=== PATIENT | female | born 1990 | race Caucasian/White ===

== ENCOUNTER 2021-07-27 13:55 | Emergency (ER) | payer SELFPAY ==
--- OUTSIDE RECORDS SUMMARY | 2021-07-27 14:00 | XMS REPORT | Continuity of Care Document ---
:1990 Author Organization [facility] t Address [address] [place] [address] Care Team Providers Name Role Phone Shin Quintana Primary Care Physician Suzette CANELA Attending Clinician Unavailable Suzette Dumont Attending Clinician Roxann WADE C Attending Clinician Shin SAMUEL Attending Clinician Unavailable Visit, Nurse Attending Clinician Unavailable Doctor Unassigned, Name Attending Clinician Unavailable Payers Payer Name Policy Type Policy Number Effective Date Expiration Date S ource Problems Condition Condition Condition Status Onset Resolution Last Treating Co mments Source Name Details Category Date Date Treatment Clinician Date Nexplanon Nexplanon Disease Active Uni vers removal removal 4-19 ity of 00:00: [place] 00 [facility] Contracept Contracept Disease Active U nivers ion ion 3-12 [place] [facility] Lack of Lack of Disease Active Univers access to access to 1-17 [place] [facility] High-risk High-risk Disease Active Uni vers 6-23 ity of supervisio [place]visio [place] 00 Medical unspecifie unspecifie Br anch d d trimester trimester BV BV Disease Active Univers (bacterial (bacterial 2-24 it y of vaginosis) [place]in[place] [facility] Chlamydia Chlamydia Disease Active Uni vers trachomati trachomati 09-04 it y of s s 00:00: [place] infection infection 00 Medi cindi of lower of lower Branch genitourin genitourin jordan sites jordan sites Tobacco Tobacco Disease Active Univers use use 21 ity of disorder disorder 00:00: [place] 00 Medical Branch Need for Need for Disease Active Unive rs prophylact prophylact -21 it y of ic ic 00:00: [place] vaccinatio vaccinatio 00 Me dical n with n with Branch combined combined diphtheria diphtheria -tetanus-p -tetanus-p ertussis ertussis (DTP) (DTP) vaccine vaccine Allergies, Adverse Reactions, Alerts Allergy Allergy Status Severity Reaction(s) Onset Inactive Treating Comm ents Source Name Type Date Date Clinician LATEX DRUG Active Anaphylaxis Unive rs INGREDI - ity of 00:00: [place] 00 Medical Branch Latex Propensi Active Anaphylaxis Uni vers ty to 01-30 ity of adverse 00:00: [place] reaction 00 Medical s Branch LEVOFLOX DRUG Active ITCHING Univers ACIN INGREDI - ity of 00:00: [place] 00 Medical Branch Levoflox Propensi Active Itching Unive rs acin ty to - ity of adverse 00:00: [place] reaction 00 Medical s Branch Social History Social Habit Start Date Stop Date Quantity Comments Source History of tobacco Cigarette Smoker University of use [facility] Exposure to Not sure [employer] of SARS-CoV-2 (event) [facility] Cigarettes smoked 2021-04-16 2021-04-16 Univers ity of current (pack per 00:00:00 00:00:00 ) - Reported Branch Cigarette 2021-04-16 2021-04-16 University of pack-years 00:00:00 00:00:00 [facility] Tobacco use and 2021-04-16 2021-04-16 Never used Universit y of exposure 00:00:00 00:00:00 [facility] Alcohol intake 2021-04-16 2021-04-16 Current drinker Unive rsity of 00:00:00 00:00:00 of alcohol [facility] (finding) [place] Tobacco Comment 2018-11-25 2018-11-25 only smoking Univers ity of 00:00:00 00:00:00 about 5-6 cigs a [facility] dicfl day [place] Sex [birth year] At [birth year] Universit y of 00:00:00 00:00:00 [facility] Smoking Status Start Date Stop Date Source Current every day smoker 2021-04-16 00:00:00 Uni versity [facility] Medications Ordered Filled Start Stop Current Ordering Indication Dosage Frequency Signature Comments Components Source Medication Medication Date Date Medication? Clinician (SIG) Name Name levonorgest Yes [id number] 1{tbl} Take 1 Univers rel-ethinyl 9-07 tablet by ity of estradiol 00:00: mouth [place] (SRONYX) 00 daily. Medical 0.1-20 Branch mg-mcg per tablet levonorgest Yes [id number] 1{tbl} Take 1 Univers rel-ethinyl 9-07 tablet by ity of estradiol 00:00: mouth [place] (SRONYX) 00 daily. Medical 0.1-20 Branch mg-mcg per tablet levonorgest Yes [id number] 1{tbl} Take 1 Univers rel-ethinyl 9-07 tablet by ity of estradiol 00:00: mouth [place] (SRONYX) 00 daily. Medical 0.1-20 Branch mg-mcg per tablet levonorgest Yes [id number] 1{tbl} Take 1 Univers rel-ethinyl 8-13 tablet by ity of estradiol 00:00: mouth [place] (SRONYX) 00 daily. Medical 0.1-20 Branch mg-mcg per tablet levonorgest 2020- No [id number] 1{tbl} Take 1 Univers rel-ethinyl 8-13 -07 tablet by it y of estradiol 00:00: 00:00 mouth [place] (SRONYX) 00 :00 daily. Medical 0.1-20 Branch mg-mcg per tablet levonorgest 2020- No [id number] 1{tbl} Take 1 Univers rel-ethinyl 8-13 09-07 tablet by it y of estradiol 00:00: 00:00 mouth [place] (SRONYX) 00 :00 daily. Medical 0.1-20 Branch mg-mcg per tablet levonorgest 202- No [id number] 1{tbl} Take 1 Univers rel-ethinyl 8-13 09-07 tablet by it y of estradiol 00:00: 00:00 mouth [place] (SRONYX) 00 :00 daily. Medical 0.1-20 Branch mg-mcg per tablet metroNIDAZO Yes [id number] 500mg Take 1 Univers LE 500 mg 7-05 tablet by ity o f tablet 00:00: mouth 2 (two) Medical times Branch daily. metroNIDAZO Yes [id number] 500mg Take 1 Univers LE 500 mg 7-05 tablet by ity o f tablet 00:00: mouth 2 (two) Medical times Branch daily. metroNIDAZO Yes [id number] 500mg Take 1 Univers LE 500 mg 7-05 tablet by ity o f tablet 00:00: mouth 2 (two) Medical times Branch daily. metroNIDAZO Yes [id number] 500mg Take 1 Univers LE 500 mg 7-05 tablet by ity o f tablet 00:00: mouth 2 (two) Medical times Branch daily. metroNIDAZO Yes [id number] 500mg Take 1 Univers LE 500 mg 7-05 tablet by ity o f tablet 00:00: mouth 2 (two) Medical times Branch daily. metroNIDAZO Yes [id number] 500mg Take 1 Univers LE 500 mg 7-05 tablet by ity o f tablet 00:00: mouth 2 (two) Medical times Branch daily. metroNIDAZO Yes [id number] 500mg Take 1 Univers LE 500 mg 7-05 tablet by ity o f tablet 00:00: mouth 2 (two) Medical times Branch daily. metroNIDAZO Yes [id number] 500mg Take 1 Univers LE 500 mg 7-05 tablet by ity o f tablet 00:00: mouth 2 (two) Medical times Branch daily. fluconazole 2020- No [id number] 150mg Take 1 Univers (DIFLUCAN) 7-05 07-06 tablet by ity of 150 mg 00:00: 04:59 [place] tablet [place] :[place] now for 1 Medical dose. Branch fluconazole 2020- No [id number] 150mg Take 1 Univers (DIFLUCAN) 7-05 07-06 tablet by ity of 150 mg 00:00: 04:59 [place] tablet 00 :00 now for 1 Medical dose. Branch levonorgest 2020-0 Yes [id number] 1{tbl} Take 1 Univers rel-ethinyl 5-20 tablet by ity of estradiol 00:00: mouth [place] (SRONYX) 00 daily. Medical 0.1-20 Branch mg-mcg per tablet levonorgest 2020-0 Yes [id number] 1{tbl} Take 1 Univers rel-ethinyl 5-20 tablet by ity of estradiol 00:00: mouth [place] (SRONYX) 00 daily. Medical 0.1-20 Branch mg-mcg per tablet levonorgest 2020-0 Yes [id number] 1{tbl} Take 1 Univers rel-ethinyl 5-20 tablet by ity of estradiol 00:00: mouth [place] (SRONYX) 00 daily. Medical 0.1-20 Branch mg-mcg per tablet levonorgest 2020-0 Yes [id number] 1{tbl} Take 1 Univers rel-ethinyl 5-20 tablet by ity of estradiol 00:00: mouth [place] (SRONYX) 00 daily. Medical 0.1-20 Branch mg-mcg per tablet levonorgest 2020-0 Yes [id number] 1{tbl} Take 1 Univers rel-ethinyl 5-20 tablet by ity of estradiol 00:00: mouth [place] (SRONYX) 00 daily. Medical 0.1-20 Branch mg-mcg per tablet levonorgest 2020-0 Yes [id number] 1{tbl} Take 1 Univers rel-ethinyl 5-20 tablet by ity of estradiol 00:00: mouth [place] (SRONYX) 00 daily. Medical 0.1-20 Branch mg-mcg per tablet levonorgest 2020-0 Yes [id number] 1{tbl} Take 1 Univers rel-ethinyl 5-20 tablet by ity of estradiol 00:00: mouth [place] (SRONYX) 00 daily. Medical 0.1-20 Branch mg-mcg per tablet levonorgest 2020-0 Yes [id number] 1{tbl} Take 1 Univers rel-ethinyl 5-20 tablet by ity of estradiol 00:00: mouth [place] (SRONYX) 00 daily. Medical 0.1-20 Branch mg-mcg per tablet levonorgest 2020- No [id number] 1{tbl} Take 1 Univers rel-ethinyl 5-20 08-13 tablet by it y of estradiol 00:00: 00:00 mouth [place] (SRONYX) 00 :00 daily. Medical 0.1-20 Branch mg-mcg per tablet cefTRIAXone 2020- No [id number] 250mg Univers (ROCEPHIN) 12-17-10 ity of injection 16:00: 15:00 [place] 250 mg 00 :00 [facility] cefTRIAXone 2020- No [id number] 250mg Univers (ROCEPHIN) 12-17-10 ity of injection 16:00: 14:59 [place] 250 mg 00 :00 [facility] cefTRIAXone 2020- No [id number] 250mg 250 mg, Univers (ROCEPHIN) 12-17- Intramuscu it y of injection 16:00: 14:59 [place] 250 mg 00 :00 1 dose, [facility] 12/17/20 at 1100, DARIN
Re ason for Anti-Infec tive: Documented Infection< br>Documen jim Infection Site: Other
O ther site: genitourin jordan
Dur ation of Therapy: Other (see Comments) cefTRIAXone 2020- No [id number] 250mg 250 mg, Univers (ROCEPHIN) 12-17-10 Intramuscu it y of injection 16:00: 15:00 [place], [place]CE[place] 250 mg 00 :00 1 dose, [facility] 12/17/20 at 1100, DARIN
Re ason for Anti-Infec tive: Documented Infection< br>Documen jim Infection Site: Other
O ther site: genitourin jordan
Dur ation of Therapy: Other (see Comments) acetaminoph Yes 325mg Take 325 U nivers en 5-06 mg by ity of (TYLENOL) 14:57: mouth [place] 325 mg 30 every 6 Medical tablet (six) Branch hours as needed. acetaminoph 2021-0 Yes 325mg Take 325 U nivers en 5-06 mg by ity of (TYLENOL) 14:57: mouth [place] 325 mg 30 every 6 Medical tablet (six) Branch hours as needed. acetaminoph 2021-0 Yes 325mg Take 325 U nivers en 5-06 mg by ity of (TYLENOL) 14:57: mouth [place] 325 mg 30 every 6 Medical tablet (six) Branch hours as needed. acetaminoph 2021-0 Yes 325mg Take 325 U nivers en 5-06 mg by ity of (TYLENOL) 14:57: mouth [place] 325 mg 30 every 6 Medical tablet (six) Branch hours as needed. acetaminoph 2021-0 Yes 325mg Take 325 U nivers en 5-06 mg by ity of (TYLENOL) 14:57: mouth [place] 325 mg 30 every 6 Medical tablet (six) Branch hours as needed. acetaminoph 2021-0 Yes 325mg Take 325 U nivers en 5-06 mg by ity of (TYLENOL) 14:57: mouth [place] 325 mg 30 every 6 Medical tablet (six) Branch hours as needed. acetaminoph 2021-0 Yes 325mg Take 325 U nivers en 5-06 mg by ity of (TYLENOL) 14:57: mouth [place] 325 mg 30 every 6 Medical tablet (six) Branch hours as needed. acetaminoph 2021-0 Yes 325mg Take 325 U nivers en 5-06 mg by ity of (TYLENOL) 14:57: mouth [place] 325 mg 30 every 6 Medical tablet (six) Branch hours as needed. acetaminoph 2021-0 Yes 325mg Take 325 U nivers en 5-06 mg by ity of (TYLENOL) 14:57: mouth [place] 325 mg 30 every 6 Medical tablet (six) Branch hours as needed. acetaminoph 2021-0 Yes 325mg Take 325 U nivers en 5-06 mg by ity of (TYLENOL) 14:57: mouth [place] 325 mg 30 every 6 Medical tablet (six) Branch hours as needed. acetaminoph 2021-0 Yes 325mg Take 325 U nivers en 5-06 mg by ity of (TYLENOL) 14:57: mouth [place] 325 mg 30 every 6 Medical tablet (six) Branch hours as needed. acetaminoph 2021-0 Yes 325mg Take 325 U nivers en 5-06 mg by ity of (TYLENOL) 14:57: mouth [place] 325 mg 30 every 6 Medical tablet (six) Branch hours as needed. acetaminoph 2021-0 Yes 325mg Take 325 U nivers en 5-06 mg by ity of (TYLENOL) 14:57: mouth [place] 325 mg 30 every 6 Medical tablet (six) Branch hours as needed. acetaminoph 2021-0 Yes 325mg Take 325 U nivers en 5-06 mg by ity of (TYLENOL) 14:57: mouth [place] 325 mg 30 every 6 Medical tablet (six) Branch hours as needed. acetaminoph 2021-0 Yes 325mg Take 325 U nivers en 5-06 mg by ity of (TYLENOL) 14:57: mouth [place] 325 mg 30 every 6 Medical tablet (six) Branch hours as needed. acetaminoph 2021-0 Yes 325mg Take 325 U nivers en 5-06 mg by ity of (TYLENOL) 14:57: mouth [place] 325 mg 30 every 6 Medical tablet (six) Branch hours as needed. acetaminoph 2021-0 Yes 325mg Take 325 U nivers en 5-06 mg by ity of (TYLENOL) 14:57: mouth [place] 325 mg 30 every 6 Medical tablet (six) Branch hours as needed. ibuprofen 2020- 2021- No [id number] 800mg Take 1 Univers 800 mg 5-06 05-12 tablet by ity of tablet 00:00: 04:59 mouth 3 [place] 00 :00 (three) Medical times Branch daily with meals for 5 days. ibuprofen 2020-0 1- No [id number] 800mg Take 1 Univers 800 mg 5-06 05-12 tablet by ity of tablet 00:00: 04:59 mouth 3 [place] 00 :00 (three) Medical times Branch daily with meals for 5 days. ibuprofen 2020-0 2021- No [id number] 800mg Take 1 Univers 800 mg 5-06 05-12 tablet by ity of tablet 00:00: 04:59 mouth 3 [place] 00 :00 (three) Medical times Branch daily with meals for 5 days. ibuprofen 2020-0 2021- No [id number] 800mg Take 1 Univers 800 mg 5-06 05-12 tablet by ity of tablet 00:00: 04:59 mouth 3 [place] 00 :00 (three) Medical times Branch daily with meals for 5 days. acetaminoph 2019-0 Yes 325mg Take 325 U nivers en 3-12 mg by ity of (TYLENOL) 20:29: mouth [place] 325 mg 21 every 6 Medical tablet (six) Branch hours as needed. ferrous 2018-0 Yes 325mg Take 1 Univers sulfate 325 1-20 tablet by ity of mg (65 mg 00:00: mouth 2 [place] iron) 00 (two) Medical tablet times Branch daily. ferrous 2018-0 Yes 325mg Take 1 Univers sulfate 325 1-20 tablet by ity of mg (65 mg 00:00: mouth 2 [place] iron) 00 (two) Medical tablet times Branch daily. ferrous 2018-0 Yes 325mg Take 1 Univers sulfate 325 1-20 tablet by ity of mg (65 mg 00:00: mouth 2 [place] iron) 00 (two) Medical tablet times Branch daily. ferrous 2018-0 Yes 325mg Take 1 Univers sulfate 325 1-20 tablet by ity of mg (65 mg 00:00: mouth 2 [place] iron) 00 (two) Medical tablet times Branch daily. ferrous 2018-0 Yes 325mg Take 1 Univers sulfate 325 1-20 tablet by ity of mg (65 mg 00:00: mouth 2 [place] iron) 00 (two) Medical tablet times Branch daily. ferrous 2018-0 Yes 325mg Take 1 Univers sulfate 325 1-20 tablet by ity of mg (65 mg 00:00: mouth 2 [place] iron) 00 (two) Medical tablet times Branch daily. ferrous 2018-0 Yes 325mg Take 1 Univers sulfate 325 1-20 tablet by ity of mg (65 mg 00:00: mouth 2 [place] iron) 00 (two) Medical tablet times Branch daily. ferrous 2018-0 Yes 325mg Take 1 Univers sulfate 325 1-20 tablet by ity of mg (65 mg 00:00: mouth 2 [place] iron) 00 (two) Medical tablet times Branch daily. ferrous 2018-0 Yes 325mg Take 1 Univers sulfate 325 1-20 tablet by ity of mg (65 mg 00:00: mouth 2 [place] iron) 00 (two) Medical tablet times Branch daily. ferrous 2018-0 Yes 325mg Take 1 Univers sulfate 325 1-20 tablet by ity of mg (65 mg 00:00: mouth 2 [place] iron) 00 (two) Medical tablet times Branch daily. ferrous 2018-0 Yes 325mg Take 1 Univers sulfate 325 1-20 tablet by ity of mg (65 mg 00:00: mouth 2 [place] iron) 00 (two) Medical tablet times Branch daily. ferrous 2018-0 Yes 325mg Take 1 Univers sulfate 325 1-20 tablet by ity of mg (65 mg 00:00: mouth 2 [place] iron) 00 (two) Medical tablet times Branch daily. ferrous 2018-0 Yes 325mg Take 1 Univers sulfate 325 1-20 tablet by ity of mg (65 mg 00:00: mouth 2 [place] iron) 00 (two) Medical tablet times Branch daily. ferrous 2018-0 Yes 325mg Take 1 Univers sulfate 325 1-20 tablet by ity of mg (65 mg 00:00: mouth 2 [place] iron) 00 (two) Medical tablet times Branch daily. ferrous 2018-0 Yes 325mg Take 1 Univers sulfate 325 1-20 tablet by ity of mg (65 mg 00:00: mouth 2 [place] iron) 00 (two) Medical tablet times Branch daily. ferrous 2018-0 Yes 325mg Take 1 Univers sulfate 325 1-20 tablet by ity of mg (65 mg 00:00: mouth 2 [place] iron) 00 (two) Medical tablet times Branch daily. ferrous 2018-0 Yes 325mg Take 1 Univers sulfate 325 1-20 tablet by ity of mg (65 mg 00:00: mouth 2 [place] iron) 00 (two) Medical tablet times Branch daily. ferrous 2018-0 Yes 325mg Take 1 Univers sulfate 325 1-20 tablet by ity of mg (65 mg 00:00: mouth 2 [place] iron) 00 (two) Medical tablet times Branch daily. Immunizations Ordered Filled Immunization Date Status Comments [facility] e Immunization Name Name [facility] 2017-06-19 Completed University of 00:00: [facility] 2017-06-19 Completed University of :00: [facility] TD 2017-06-19 Completed University of :00: [facility] TD 2017-06-19 Completed University of :00: [facility] 2017-06-19 Completed University of :00: [facility] TD 2017-06-19 Completed University of :00: [facility] TDAP 2017-06-19 Completed University of :00: [facility] 2017-06-19 Completed University of :00: [facility] 2017-06-19 Completed University of 00:00: [facility] TDAP 2017-06-19 Completed University of 00:00:00 [facility] TDAP 2017-06-19 Completed University of 00:00: [facility] TDAP 2017-06-19 Completed University of 00:00: [facility] TDAP 2017-06-19 Completed University of 00:00:00 [facility] TDAP 2017-06-19 Completed University of 00:00:00 [facility] TDAP 2017-06-19 Completed University of 00:00:00 [facility] TDAP 2017-06-19 Completed University of 00:00:00 [facility] TDAP 2017-06-19 Completed University of 00:00:00 [facility] TDAP 2017-06-19 Completed University of 00:00:00 [facility] Influenza Virus 2017-05-22 Completed Universit y of Vaccine Quad IM 3+ 00:00:00 [facility] Influenza Virus 2017-05-22 Completed Universit y of Vaccine Quad IM 3+ 00:00:00 [facility] Influenza Virus 2017-05-22 Completed Universit y of Vaccine Quad IM 3+ 00:00:00 [facility] Influenza Virus 2017-05-22 Completed Universit y of Vaccine Quad IM 3+ 00:00:00 [facility] Influenza Virus 2017-05-22 Completed Universit y of Vaccine Quad IM 3+ 00:00:00 [facility] Influenza Virus 2017-05-22 Completed Universit y of Vaccine Quad IM 3+ 00:00:00 [facility] Influenza Virus 2017-05-22 Completed Universit y of Vaccine Quad IM 3+ 00:00:00 [facility] Influenza Virus 2017-05-22 Completed Universit y of Vaccine Quad IM 3+ 00:00:00 [facility] Influenza Virus 2017-05-22 Completed Universit y of Vaccine Quad IM 3+ 00:00:00 [facility] Influenza Virus 2017-05-22 Completed Universit y of Vaccine Quad IM 3+ 00:00:00 [facility] Influenza Virus 2017-05-22 Completed Universit y of Vaccine Quad IM 3+ 00:00:00 [facility] Influenza Virus 2017-05-22 Completed Universit y of Vaccine Quad IM 3+ 00:00:00 [facility] Influenza Virus 2017-05-22 Completed Universit y of Vaccine Quad IM 3+ 00:00:00 [facility] Influenza Virus 2017-05-22 Completed Universit y of Vaccine Quad IM 3+ 00:00:00 [facility] Influenza Virus 2017-05-22 Completed Universit y of Vaccine Quad IM 3+ 00:00: [facility] Influenza Virus 2017-05-22 Completed Universit y of Vaccine Quad IM 3+ 00:00:00 [facility] Influenza Virus 2017-05-22 Completed Universit y of Vaccine Quad IM 3+ 00:00:00 [facility] Influenza Virus 2017-05-22 Completed Universit y of Vaccine Quad IM 3+ 00:00:00 [facility] TDAP 2015-08-30 Completed University of 00:00:00 [facility] TDAP 2015-08-30 Completed University of 00:00:00 [facility] TDAP 2015-08-30 Completed University of 00:00:00 [facility] TDAP 2015-08-30 Completed University of 00:00:00 [facility] TDAP 2015-08-30 Completed University of 00:00:00 [facility] TDAP 2015-08-30 Completed University of 00:00:00 [facility] TDAP 2015-08-30 Completed University of 00:00:00 [facility] TDAP 2015-08-30 Completed University of 00:00:00 [facility] TDAP 2015-08-30 Completed University of 00:00:00 [facility] TDAP 2015-08-30 Completed University of 00:00:00 [facility] TDAP 2015-08-30 Completed University of 00:00:00 [facility] TDAP 2015-08-30 Completed University of 00:00:00 [facility] TDAP 2015-08-30 Completed University of 00:00:00 [facility] TDAP 2015-08-30 Completed University of 00:00:00 [facility] TDAP 2015-08-30 Completed University of 00:00:00 [facility] TDAP 2015-08-30 Completed University of 00:00:00 [facility] TDAP 2015-08-30 Completed University of 00:00:00 [facility] TDAP 2015-08-30 Completed University of 00:00:00 [facility] Td 2001-08-10 Completed University of 00:00:00 [facility] Td 2001-08-10 Completed University of 00:00:00 [facility] Td 2001-08-10 Completed University of 00:00:00 [facility] Td 2001-08-10 Completed University of 00:00:00 [place] [facility] Td 2001-08-10 Completed University of 00:00:00 [place] [facility] Td 2001-08-10 Completed University of 00:00:00 [place] [facility] Td 2001-08-10 Completed University of 00:00:00 [place] [facility] Td 2001-08-10 Completed University of 00:00:00 [place] [facility] Td 2001-08-10 Completed University of 00:00:00 [place] [facility] Td 2001-08-10 Completed University of 00:00:00 [place] [facility] Td 2001-08-10 Completed University of 00:00:00 [place] [facility] Td 2001-08-10 Completed University of 00:00:00 [place] [facility] Td 2001-08-10 Completed University of 00:00:00 [place] [facility] Td 2001-08-10 Completed University of 00:00:00 [place] [facility] Td 2001-08-10 Completed University of 00:00:00 [place] [facility] Td 2001-08-10 Completed University of 00:00:00 [place] [facility] Td 2001-08-10 Completed University of 00:00:00 [place] [facility] Td 2001-08-10 Completed University of 00:00:00 [facility] Vital Signs Vital Name Observation Time Observation Value Comments Source Systolic blood 2021-04-16 20:06:00 133 mm[Hg] Univer sity of pressure [facility] Diastolic blood 2021-04-16 20:06:00 73 mm[Hg] Unive rsity of [facility] Heart rate 2021-04-16 20:06:00 88 /min [facility] Body temperature 2021-04-16 20:06:00 36.67 Mei [facility] Respiratory rate 2021-04-16 20:06:00 16 /min [facility] Body height 2021-04-16 20:06:00 167.6 cm [facility] Body weight 2021-04-16 20:06:00 92.761 kg [facility] BMI 2021-04-16 20:06:00 33.01 kg/m2 [facility] Systolic blood 2021-02-06 20:49:00 131 mm[Hg] Univer sity of pressure [facility] Diastolic blood 2021-02-06 20:49:00 79 mm[Hg] Unive rsity of pressure [place] [facility] Heart rate 2021-02-06 20:49:00 83 /min Universi ty of [place] [facility] Body temperature 2021-02-06 20:49:00 36.72 Mei Univ ersity of [place] [facility] Respiratory rate 2021-02-06 20:49:00 16 /min Univ ersity of [place] [facility] Body height 2021-02-06 20:49:00 167.6 cm Universi ty of [place] [facility] Body weight 2021-02-06 20:49:00 96.191 kg Universi ty of [place] [facility] BMI 2021-02-06 20:49:00 34.23 kg/m2 Universi ty of [place] [facility] Systolic blood 2020-12-27 18:22:00 137 mm[Hg] Univer sity of pressure [place] [facility] Diastolic blood 2020-12-27 18:22:00 64 mm[Hg] Unive rsity of pressure [place] [facility] Heart rate 2020-12-27 18:22:00 72 /min Universi ty of [place] [facility] Body temperature 2020-12-27 18:22:00 36.67 Mei Univ ersity of [place] [facility] Respiratory rate 2020-12-27 18:22:00 16 /min [facility] Body height 2020-12-27 18:22:00 167.6 cm [facility] Body weight 2020-12-27 18:22:00 97.886 kg [facility] BMI 2020-12-27 18:22:00 34.83 kg/m2 [facility] Systolic blood 2020-12-17 14:58:00 118 mm[Hg] [facility] Diastolic blood 2020-12-17 14:58:00 75 mm[Hg] [facility] Heart rate 2020-12-17 14:58:00 76 /min [facility] Body temperature 2020-12-17 14:58:00 36.78 Mei [facility] Respiratory rate 2020-12-17 14:58:00 16 /min [facility] Body height 2020-12-17 14:58:00 167.6 cm Universi [facility] Body weight 2020-12-17 14:58:00 97.024 kg [facility] BMI 2020-12-17 14:58:00 34.52 kg/m2 [facility] Systolic blood 2020-12-13 14:41:00 117 mm[Hg] Univer [facility]ity of pressure [facility] Diastolic blood 2020-12-13 14:41:00 74 mm[Hg] Unive rsity [facility] Heart rate 2020-12-13 14:41:00 76 /min [facility] Body temperature 2020-12-13 14:41:00 36.67 Mei [facility] Res[facility] rate 2020-12-13 14:41:00 16 /min [facility] Body height 2020-12-13 14:41:00 167.6 cm [facility] Body weight 2020-12-13 14:41:00 96.248 kg [facility] BMI 2020-12-13 14:41:00 34.25 kg/m2 [facility] Procedures Procedure Date / Time Performed Performing Clinician Sour e POCT TEST 2020-12-27 18:25:00 Milagro Sameul [facility] POCT TEST 2020-12-13 15:48:00 Milagro Samuel [facility] CBC WITH DIFF 2020-12-13 15:43:00 Milagro Samuel [facility] GC & CHLAMYDIA 2020-12-13 15:43:00 Milagro Samuel [facility] ASSIGNMENT OF BENEFITS 2020-12-13 14:30:52 Doctor Unassigned, No [facility] Encounters Start End Encounter Admission Attending Care Care Encounter Source Date/Time Date/Time Type Type Clinicians Facility Department ID 2021-12-12 2021-12-12 Outpatient MADHAVI RAMOS [facility] [id number] [facility] 13:15:00 13:15:00 ELVIN [id number] ity o f [facility] 2021-12-12 2021-12-12 Outpatient RAVI RAMOSMB [facility] [id number] Univers 13:15:00 13:15:00 ELVIN gusman o [facility] 2021-04-16 2021-04-16 [facility] [id number] Univers 14:27:14 15:20:46 Visit Elvin R LABEL REWINDER [id number] ity of REGIONAL [id number] Carlos as MATERNAL [id number] [facility] & [address] 2021-04-16 2021-04-16 [facility] [id number] Univers 14:30:00 14:30:00 SEEGAIL [id number] jose o [facility] 2021-04-16 2021-04-16 [facility] Suz[facility] [id number] Univers 14:30:00 14:30:00 [facility] 2021-03-22 2021-03-22 Telephone [facility] [id number] Univers 00:00:00 00:00:00 Milagro C LABEL REWINDER [id number] [facility] of [facility] 4.2.7.2.686 Carlos as MATERNAL [id number] [address] 2021-03-21 2021-03-21 [facility] [id number] 5P-20 Univers 13:15:00 13:15:00 MILAGRO [id number] [facility] 2021-03-21 2021-03-21 [facility] [id number] Univers 13:15:00 13:15:[address] [facility] 2021-03-21 2021-03-21 Refill [facility] [id number] Univers 00:00:00 00:00:00 Milagro C LABEL REWINDER [id number] it[facility] of [facility] 4.2.7.2.686 Carlos as MATERNAL [id number] [facility] & [address] 2021-03-20 2021-03-20 Refill [facility] [id number] Univers 00:00:00 00:00:00 Milagro C LABEL REWINDER [id number] ity of REGIONAL [id number] Carlos as MATERNAL [id number] [facility] & [address] 2021-02-11 2021-02-11 Telephone [facility] [id number] Univers 00:00:00 00:00:00 Milagro C LABEL REWINDER [id number] ity of REGIONAL 4.2.7.2.686 Carlos as MATERNAL [id number] [address] 2021-02-06 2021-02-06 [facility] [id number] Univers 15:38:35 16:18:40 Visit Milagro C LABEL REWINDER [id number] it[facility] of [facility] 4.2.7.2.686 Carlos as MATERNAL [id number] [facility] & [address] 2021-02-06 2021-02-06 Outpatient R ROXANN, [facility] [id number] Univers 15:45:00 15:45:00 MILAGRO [id number] ity o [facility] 2021-02-06 2021-02-06 Outpatient R ROXANN, [facility] [id number] Univers 15:45:00 15:45:00 MILAGRO ity o [facility] 2020-12-27 2020-12-27 Office [facility] [id number] Univers 13:01:36 14:25:43 Visit Milagro C LABEL REWINDER [id number] it[facility] of [facility] 4.2.7.2.686 Carlos as MATERNAL [id number] [facility] & [address] 2020-12-27 2020-12-27 Outpatient R ROXANN, [facility] [id number] Univers 13:15:00 13:15:00 MILAGRO [id number] itjose o [facility] 2020-12-27 2020-12-27 Outpatient R ROXANN [facility] [id number] Univers 13:15:00 13:15:00 MILAGRO goodman [facility] 2020-12-17 2020-12-17 Nurse Visit, Ang-Rmchp Nurse [facility] [id number] Univers 09:27:18 09:56:39 Visit Milagro Samuel LABEL REWINDER 350.1.13. 10 ity of [facility] 4.2.7.2.686 Carlos as MATERNAL [id number] [facility] & [address] 2020-12-17 2020-12-17 Outpatient R [facility] [id number] Univers 09:30:00 09:30:00 [id number] ity [facility] 2020-12-17 2020-12-17 Outpatient R ROXANN [facility] [id number] Univers 09:30:00 09:30:00 MILAGRO naseem goodman [facility] 2020-12-17 2020-12-17 Tele[facility] [id number] Univers 00:00:00 00:00:00 Milagro Melissa LABEL REWINDER [id number] [facility] 4.2.7.2.686 Carlos as MATERNAL [id number] [facility] & [address] 2020-12-13 2020-12-13 Office [facility] [id number] Univers 09:32:46 10:42:07 Visit Milagro Melissa LABEL REWINDER 350.1.13.10 it[facility] of [facility] [id number] Carlos as MATERNAL [id number] [facility] & [address] 2020-12-13 2020-12-13 Outpatient R ROXANN [facility] [id number] Univers 09:00:00 09:00:00 MILAGRO [id number] it o [facility] 2020-12-13 2020-12-13 [facility] [id number] Univers 09:00:00 09:00:00 MILAGRO gusman o [facility] 2020-12-13 2020-12-13 Orders Doctor OZIEL [id number] Univers 00:00:00 00:00:00 Only Unassigned, AAMIR 350.1.13.10 ity of [facility] 4.2.7.2.686 Carlos as [id number] [address] 2020-12-12 2020-12-12 Outpatient R [facility] [id number] Univers 09:00:00 09:00:[id number] [facility] 2020-11-29 2020-11-29 Outpatient R [facility] [id number] Univers 13:15:00 13:15:[id number] [facility] Results Test Description Test Time Test Comments Results Result Comments Source POCT TEST 2020-12-27 18:25:00 Test Item Value Reference Range Interpretation Comme nts POCT PREG (test code = 1605) Negative On board controls acceptable with C Line (test code = 3574) Yes POCT PREG LOT # (test code = 3575) POCT PREG TEST DATE (test code = 3576) [facility] [id number] 18:25:00 Test Item Value Reference Range Interpretation Comments POCT PREG (test code = 1605) Negative On board controls acceptable with C Yes Line (test code = 3574) POCT PREG LOT # (test code = 3575) POCT PREG TEST DATE (test code = 3576) [facility] [id number] 18:25:00 Test Item Value Reference Range Interpretation Comments POCT PREG (test code = 1605) Negative On board controls acceptable with C Yes Line (test code = 3574) POCT PREG LOT # (test code = 3575) POCT PREG TEST DATE (test code = 3576) [facility] CHLAMYDIA AMPLIFIED [id number] 19:01:49 Test Item Value Reference Range Interpretation Comments C. trachomatis Nucleic Negative Negative Acid (test code = 73602-2) N. gonorrhoeae Nucleic Positive Negative A Acid (test code = 28261-4) LINDA (test code = LINDA) Reliable results are dependent on adequate specimen collection. ? A positive result obtained from a patient after therapeutic treatment cannot be interpreted as indicating the presence of viable organisms. ?For patients on whom a false positive result may have adverse psychosocial impact, retesting is advised. Indeterminate: Unable to generate a valid test result on this specimen. ?Please submit a new specimen for repeat testing if clinically indicated. Chlamydia trachomatis/Neisseria gonorrhoeae nucleic acid amplification testing (NAAT) has not been validated for medico-legal specimens (sexual abuse in maya-pubertal and pre-pubertal children, sexual assault, and legal cases). ?Culture for Chlamydia trachomatis and/or Neisseria gonorrhoeae from clinically appropriate sites is the method of choice in these cases. ? Results from this testing should be interpreted in conjunction with other laboratory and clinical data available to the clinician.For females in general, a urine specimen is a second-line option because it is considered less sensitive than a cervical swab for Chlamydia trachomatis and/or Neisseria gonorrhoeae NAAT. Lab Interpretation Abnormal (test code = 33886-3) [facility] CHLAMYDIA AMPLIFIED [id number] 19:01:49 Test Item Value Reference Range Interpretation Comments C. trachomatis Nucleic Negative Negative Acid (test code = 32689-1) N. gonorrhoeae Nucleic Positive Negative A Acid (test code = 94307-8) LINDA (test code = LINDA) Reliable results are dependent on adequate specimen collection. ? A positive result obtained from a patient after therapeutic treatment cannot be interpreted as indicating the presence of viable organisms. ?For patients on whom a false positive result may have adverse psychosocial impact, retesting is advised. Indeterminate: Unable to generate a valid test result on this specimen. ?Please submit a new specimen for repeat testing if clinically indicated. Chlamydia trachomatis/Neisseria gonorrhoeae nucleic acid amplification testing (NAAT) has not been validated for medico-legal specimens (sexual abuse in maya-pubertal and pre-pubertal children, sexual assault, and legal cases). ?Culture for Chlamydia trachomatis and/or Neisseria gonorrhoeae from clinically appropriate sites is the method of choice in these cases. ? Results from this testing should be interpreted in conjunction with other laboratory and clinical data available to the clinician.For females in general, a urine specimen is a second-line option because it is considered less sensitive than a cervical swab for Chlamydia trachomatis and/or Neisseria gonorrhoeae NAAT. Lab Interpretation Abnormal (test code = 45451-9) [facility] WITH [id number] 03:17:10 Test Item Value Reference Range Interpretation Comments WBC (test code = See_Comment [Automated 6690-2) message] The sy stem which generated this result transmitted reference range : 4.30 - 11.10 10*3/?L. The reference range was not used to interpret this result as normal/abnormal . RBC (test code = See_Comment [Automated 789-8) message] The sy stem which generated this result transmitted reference range : 3.93 - 5.25 10*6/?L. The reference range was not used to interpret this result as normal/abnormal . HGB (test code = 13.3 g/dL 11.6-15.0 718-7) HCT (test code = 41.1 % 35.7-45.2 4544-3) MCV (test code = 92.6 fL 80.6-95.5 787-2) MCH (test code = 30.0 pg 25.9-32.8 785-6) MCHC (test code = 32.4 g/dL 31.6-35.1 786-4) RDW-SD (test code = 42.4 fL 39.0-49.9 64052-1) RDW-CV (test code = 12.4 % 12.0-15.5 788-0) PLT (test code = See_Comment [Automated 777-3) message] The sy stem which generated this result transmitted reference range : 166 - 358 10*3/ ?L. The reference r zakia was not used to interpret this result as normal/abnormal . MPV (test code = 10.3 fL 9.5-12.9 36914-9) NRBC/100 WBC (test See_Comment [Automat ed code = 4083083445) message] The system which generated this result transmitted reference range : 0.0 - 10.0 /100 WBCs. The refer ence range was not u sed to interpret th is result as normal/abnormal . NRBC x10^3 (test code <0.01 See_Comment [Auto mated = 4336783617) message] The s ystem which generated this result transmitted reference range : 10*3/?L. The reference range was not used to interpret this result as normal/abnormal . GRAN MAT (NEUT) % 66.1 % (test code = 770-8) IMM GRAN % (test code 0.90 % = 5620325301) LYMPH % (test code = 22.1 % 736-9) MONO % (test code = 6.9 % 5905-5) EOS % (test code = 3.4 % 713-8) BASO % (test code = 0.6 % 706-2) GRAN MAT x10^3(ANC) 6.45 10*3/uL 1.88-7.09 (test code = 9219753139) IMM GRAN x10^3 (test 0.09 10*3/uL 0.00-0.06 H code = 9541255148) LYMPH x10^3 (test code 2.16 10*3/uL 1.32-3.29 = 731-0) MONO x10^3 (test code 0.67 10*3/uL 0.33-0.92 = 742-7) EOS x10^3 (test code = 0.33 10*3/uL 0.03-0.39 711-2) BASO x10^3 (test code 0.06 10*3/uL 0.01-0.07 = 704-7) Lab Interpretation Abnormal (test code = 23972-0) [facility] WITH [id number] 03:17:10 Test Item Value Reference Range Interpretation Comments WBC (test code = See_Comment [Automated 8348-2) message] The sy stem which generated this result transmitted reference range : 4.30 - 11.10 10*3/?L. The reference range was not used to interpret this result as normal/abnormal . RBC (test code = See_Comment [Automated 404-8) message] The sy stem which generated this result transmitted reference range : 3.93 - 5.25 10*6/?L. The reference range was not used to interpret this result as normal/abnormal . HGB (test code = 13.3 g/dL 11.6-15.0 718-7) HCT (test code = 41.1 % 35.7-45.2 4544-3) MCV (test code = 92.6 fL 80.6-95.5 787-2) MCH (test code = 30.0 pg 25.9-32.8 785-6) MCHC (test code = 32.4 g/dL 31.6-35.1 786-4) RDW-SD (test code = 42.4 fL 39.0-49.9 85689-1) RDW-CV (test code = 12.4 % 12.0-15.5 788-0) PLT (test code = See_Comment [Automated 777-3) message] The sy stem which generated this result transmitted reference range : 166 - 358 10*3/ ?L. The reference r zakia was not used to interpret this result as normal/abnormal . MPV (test code = 10.3 fL 9.5-12.9 56016-4) NRBC/100 WBC (test See_Comment [Automat ed code = 3736753144) message] The system which generated this result transmitted reference range : 0.0 - 10.0 /100 WBCs. The refer ence range was not u sed to interpret th is result as normal/abnormal . NRBC x10^3 (test code <0.01 See_Comment [Auto mated = 1771159053) message] The s ystem which generated this result transmitted reference range : 10*3/?L. The reference range was not used to interpret this result as normal/abnormal . GRAN MAT (NEUT) % 66.1 % (test code = 770-8) IMM GRAN % (test code 0.90 % = 3503910077) LYMPH % (test code = 22.1 % 736-9) MONO % (test code = 6.9 % 5905-5) EOS % (test code = 3.4 % 713-8) BASO % (test code = 0.6 % 706-2) GRAN MAT x10^3(ANC) 6.45 10*3/uL 1.88-7.09 (test code = 4686211486) IMM GRAN x10^3 (test 0.09 10*3/uL 0.00-0.06 H code = 3069646990) LYMPH x10^3 (test code 2.16 10*3/uL 1.32-3.29 = 731-0) MONO x10^3 (test code 0.67 10*3/uL 0.33-0.92 = 742-7) EOS x10^3 (test code = 0.33 10*3/uL 0.03-0.39 711-2) BASO x10^3 (test code 0.06 10*3/uL 0.01-0.07 = 704-7) Lab Interpretation Abnormal (test code = 51556-0) [facility] [id number] 15:48:00 Test Item Value Reference Range Interpretation Comments POCT PREG (test code = 1605) Negative On board controls acceptable with C Yes Line (test code = 3574) POCT PREG LOT # (test code = 3575) POCT PREG TEST DATE (test code = 3576) [facility] [id number] 15:48:00 Test Item Value Reference Range Interpretation Comments POCT PREG (test code = 1605) Negative On board controls acceptable with C Yes Line (test code = 3574) POCT PREG LOT # (test code = 3575) POCT PREG TEST DATE (test code = 3576) [facility]
--- NOTE | 2021-07-27 14:11 | EDPHYS ---
Physician Documentation [facility] Name: Fernie Kennedy Age: 30 yrs Sex: Female : 1990 Arrival Date: 07/27/2021 Time: 13:58 Bed Waiting Private MD: ED Physician William Shah HPI: 07/27 14:13 This 30 yrs old Female presents to ER via Unassigned with complaints of Sore Throat. kb 14:13 The patient presents with sore throat. The patient describes throat pain as constant. kb Onset: The symptoms/episode began/occurred 2 day(s) ago. Severity of symptoms: At their worst the symptoms were moderate, in the emergency department the symptoms are unchanged. Modifying factors: The symptoms are alleviated by nothing, the symptoms are aggravated by swallowing, Patient's oral intake status: good. Associated signs and symptoms: Pertinent positives: Sore throat Pertinent negatives fever. The patient has not experienced similar symptoms in the past. The patient has not recently seen a physician. 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 - Social history:: Smoking status: Reported history of juuling and/or vaping. ROS: 14:12 Constitutional: Negative for fever, chills, and weight loss. kb 14:12 ENT: Positive for sore throat. 14:12 All other systems are negative. Exam: 14:12 Constitutional: This is a well developed, well nourished patient who is awake, alert, kb and in no acute distress. Head/Face: Normocephalic, atraumatic. Respiratory: Respirations even and unlabored. No increased work of breathing. Talking in full sentences Skin: Warm, dry with normal turgor. Normal color. MS/ Extremity: Pulses equal, no cyanosis. Neurovascular intact. Full, normal range of motion. Neuro: Awake and alert, GCS 15, oriented to person, place, time, and situation. Moves all extremities. Normal gait. Psych: Awake, alert, with orientation to person, place and time. Behavior, mood, and affect are within normal limits. 14:12 ENT: Posterior pharynx: Tonsils: bilaterally enlarged, with erythema, with exudate, Uvula: normal, midline, swelling, that is moderate, erythema, that is moderate, exudate, that is mild. Vital Signs: 14:10 BP 140 / 86; Pulse 84; Resp 18; Temp 97.4(TE); Pulse Ox 99% on R/A; Weight 86.18 kg; ss Height 5 ft. 6 in. (167.64 cm); 14:10 Body Mass Index 30.67 (86.18 kg, 167.64 cm) ss MDM: 14:10 Patient medically screened. kb 14:10 Data reviewed: vital signs, nurses notes. Data interpreted: Pulse oximetry: on room air kb is 100 %. Interpretation: normal. Counseling: I had a detailed discussion with the patient and/or guardian regarding: the historical points, exam findings, and any diagnostic results supporting the discharge/admit diagnosis, the need for outpatient follow up, a family practitioner, to return to the emergency department if symptoms worsen or persist or if there are any questions or concerns that arise at home. Administered Medications: No medications were administered Disposition: 16:47 Co-signature as Attending Physician, William Shah MD I agree with the assessment and rn plan of care. Attestation: The patient's history, exam findings, diagnostics, and a summary of any interventions or procedures was reviewed in detail with Leeanna VILLASENOR. Disposition Summary: 07/27/21 14:10 Discharge Ordered Location: Home kb Condition: Stable kb Diagnosis - Streptococcal pharyngitis kb Followup: kb - With: Emergency Department - When: As needed - Reason: Worsening of condition Followup: kb - With: Private Physician - When: 2 - 3 days - Reason: Recheck today's complaints, Continuance of care, Re-evaluation by your physician Discharge Instructions: - Discharge Summary Sheet kb - Strep Throat, Adult, [id number] kb Forms: - Medication Reconciliation Form kb - Thank You Letter kb - Antibiotic Education kb - Prescription Opioid Use kb - Work release form eb Prescriptions: - Augmentin 875-125 mg Oral Tablet - take 1 tablet by ORAL route every 12 hours for 10 days; 20 tablet; Refills: 0, kb Product Selection Permitted Signatures: Dispatcher [employer] EDLeeanna Singleton FNP-C FNP-Ckb Nieto, William, MD MD rn Josefa Stout, VINCENT RN ss
--- NOTE | 2021-07-27 14:25 | ER ---
Nurse's Notes [facility] Name: Fernie Kennedy Age: 30 yrs Sex: Female : 1990 Arrival Date: 07/27/2021 Time: 13:58 Bed Waiting Private MD: Diagnosis: Streptococcal pharyngitis Presentation: 07/27 14:10 Chief complaint: Patient states: sore throat x 2 days. Denies fever. Coronavirus ss screen: Client denies travel out of the [place] in the last 14 days. Ebola Screen: Patient denies exposure to infectious person. Patient denies travel to an Ebola-affected area in the 21 days before illness onset. Initial Sepsis Screen: Does the patient meet any 2 criteria? No. Patient's initial sepsis screen is negative. Does the patient have a suspected source of infection? No. Patient's initial sepsis screen is negative. Risk Assessment: Do you want to hurt yourself or someone else? Patient reports no desire to harm self or others. Onset of symptoms was July 25, 2021. 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 - Social history:: Smoking status: Reported history of juuling and/or vaping. Screenin:24 Abuse screen: Denies threats or abuse. Denies injuries from another. Nutritional ss screening: No deficits noted. Tuberculosis screening: Never had TB. Fall Risk None identified. Assessment: 14:24 General: Appears in no apparent distress. comfortable, Behavior is calm, cooperative, ss Denies fever, feeling ill. Neuro: Level of Consciousness is awake, alert, obeys commands. Respiratory: Airway is patent Respiratory effort is even, unlabored. EENT: Throat is reddened. Derm: Skin is pink, warm \T\ dry. normal. Vital Signs: 14:10 BP 140 / 86; Pulse 84; Resp 18; Temp 97.4(TE); Pulse Ox 99% on R/A; Weight 86.18 kg; ss Height 5 ft. 6 in. (167.64 cm); 14:10 Body Mass Index 30.67 (86.18 kg, 167.64 cm) ED Course: 13:58 Patient arrived in ED. mr 14:10 Leeanna Davidson FNP-C is [facility]. kb 14:10 William Shah MD is Attending Physician. kb 14:23 Triage completed. ss 14:23 Arm band placed on right wrist. ss 14:24 Patient has correct armband on for positive identification. Bed in low position. ss 14:24 No provider procedures requiring assistance completed. Patient did not have IV access ss during this emergency room visit. Administered Medications: No medications were administered Outcome: 14:10 Discharge ordered by . kb 14:24 Discharged to home ambulatory. ss 14:24 Condition: good 14:24 Discharge instructions given to patient, Instructed on discharge instructions, follow up and referral plans. medication usage, Demonstrated understanding of instructions, follow-up care, medications, Prescriptions given X 1. 14:25 Patient left the ED. ss Signatures: Leeanna Davidson FNP-C FNP-Ckb Rivera, Mary RuthyjonathonJosefa, RN RN ss
[2021-07-27 14:36] VITALS: BP 140/86; TEMP 97.4; O2SAT 99
== END 2021-07-27 14:25 | disposition home or self-care (01) ==
LOC: ER 13:55
DX: J02.0 Streptococcal pharyngitis (principal); Z88.1 Allergy status to other antibiotic agents
CPT/HCPCS: 99282